=== PATIENT | female | born 1955 | race Caucasian/White ===

== ENCOUNTER → 2021-05-26 | Outpatient (CLI) | payer OTHER ==
--- NOTE | 2021-05-26 14:09 | RAD ---
EXAM: PET/CT SKULL BASE THROUGH MID THIGH. HISTORY: Neoplasm of inguinal lymph nodes. TECHNIQUE: CT of the skull base through the mid thighs was performed for the purposes of attenuation correction. 12.40 mCi F-18 fluorodeoxyglucose were administered intravenously. Blood glucose level at the time of administration was 131 mg/dL. After 60 minutes uptake, positron emission tomography of t he skull base through the mid thighs was performed. The PET and CT data were fused and interpreted in combination on a dedicated workstation. Reported standard uptake values (SUV) are the maximum SUV wi thin a lesional volumetric region of interest. SUV normalization is via body mass. COMPARISON: CT abdomen pelvis 05/17/2021. FINDINGS: Mediastinal blood pool SUV reference value: SUV max 2.5, SUV mean 2.17. Head and neck: No abnormal FDG uptake or lymphadenopathy. CHEST: There is a mass in the outer left breast measuring 2.2 x 1.0 cm with mild FDG uptake, SUV max 2.37. Mild FDG uptake in the AP window lymph node, SUV max 2.26 nonspecific but likely reactive. No l ymphadenopathy. There are calcified subcarinal and right hilar lymph nodes. Heart is normal in size. No pericardial effusion. Thoracic aorta is normal in caliber. The lungs are clear. No pleural effusio n. Abdomen and pelvis: No lymphadenopathy. Mild FDG uptake in the region of the distal rectum and anus, SUV max 3.7, nonspecific. No other areas of abnormal FDG uptake. No lymphadenopathy in the abdomen an d pelvis. Liver, gallbladder, pancreas, spleen, adrenal glands, kidneys and bladder, uterus are jaxson l. Stomach, small bowel, appendix and colon are normal. No free fluid or free air. Musculoskeletal: The small fluid collection in the right groin has resolved. There is residual soft t issue thickening measuring 1.6 x 1.0 cm, with low-level FDG uptake, SUV max 1.57. This is consistent with scarring/surgical changes. No abnormal FDG uptake. 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 IMPRESSION: 1. The small fluid collection in the right groin has resolved and there is residual soft tissue thick ening with low-level FDG uptake, consistent with scarring or surgical changes. No inguinal lymphadeno dann. 2. 2.2 cm left breast mass with mild FDG uptake, indeterminate. Malignancy is possible. Recommend cor relation with diagnostic mammogram and left breast ultrasound. 3. Mild FDG uptake in the region of the distal rectum and anus, nonspecific. Electronically signed by: Rosalee Reich MD (05/26/2021 2:07 PM) [id number]
== END ==
LOC: PETSC 08:58
PROVIDERS: ATTEND Radiology Radiation Oncology
DX: C77.4 Secondary and unspecified malignant neoplasm of inguinal and lower limb lymph nodes (principal); N63.20 Unspecified lump in the left breast, unspecified quadrant; M50.30 Other cervical disc degeneration, unspecified cervical region
CPT/HCPCS: 78815; A9552

== ENCOUNTER → 2021-06-28 | Outpatient (CLI) | payer OTHER ==
[~2021-06-28] MED LIST: IOHEXOL 240 MG/ML 100 ML VIAL. ONE
== END ==
LOC: CT 12:47
PROVIDERS: ATTEND Radiology Radiation Oncology
DX: C21.1 Malignant neoplasm of anal canal (principal)
CPT/HCPCS: 76380; Q9966

== ENCOUNTER → 2021-07-21 | Outpatient (CLI) | payer OTHER ==
[2021-07-21 11:33] LABS: BASO % 0 % (0-3); EOS % 7 % (0-3); HEMATOCRIT 24.9 % (36.0-47.0); HEMOGLOBIN 8.7 g/dL (12.0-15.5); LYMPH # 0.2 x10^3/uL (1.0-4.8); LYMPH % 62 % (24-48); MEAN CORPUSCULAR HEMOGLOBIN 32 pg (25-35); MEAN CORPUSCULAR HGB CONC 35 g/dL (31-37); MEAN CORPUSCULAR VOLUME 90 fL (79-100); MONO # 0.1 x10^3/uL (0.0-1.1); MONO % 16 % (0-9); NEUT # 0.1 x10^3/uL (1.8-7.7); NEUT % 15 % (31-73); RED BLOOD COUNT 2.75 x10^6/uL (3.50-5.40); RED CELL DISTRIBUTION WIDTH 12.6 % (11.5-14.5)
[2021-07-21 11:37] LABS: WHITE BLOOD COUNT 0.4 x10^3/uL (4.0-11.0)
[2021-07-21 11:38] LABS: PLATELET COUNT 18 x10^3/uL (140-400)
[2021-07-21 11:39] LABS: CREATININE 0.8 mg/dL (0.6-1.0); GFR 72.4; POTASSIUM 3.4 mmol/L (3.5-5.1)
== END ==
LOC: ONCLAB 11:06
PROVIDERS: ATTEND Physician Assistant
DX: C50.412 Malignant neoplasm of upper-outer quadrant of left female breast (principal)
CPT/HCPCS: 36415; 80048; 85025

== ENCOUNTER → 2021-07-27 | Outpatient (CLI) | payer OTHER ==
[2021-07-27 12:03] LABS: BASO % 0 % (0-3); EOS % 1 % (0-3); HEMATOCRIT 22.7 % (36.0-47.0); LYMPH # 0.3 x10^3/uL (1.0-4.8); LYMPH % 14 % (24-48); MEAN CORPUSCULAR HEMOGLOBIN 32 pg (25-35); MEAN CORPUSCULAR HGB CONC 35 g/dL (31-37); MEAN CORPUSCULAR VOLUME 91 fL (79-100); MONO # 0.2 x10^3/uL (0.0-1.1); MONO % 10 % (0-9); NEUT # 1.8 x10^3/uL (1.8-7.7); NEUT % 76 % (31-73); RED BLOOD COUNT 2.51 x10^6/uL (3.50-5.40); RED CELL DISTRIBUTION WIDTH 12.6 % (11.5-14.5); WHITE BLOOD COUNT 2.4 x10^3/uL (4.0-11.0)
[2021-07-27 12:10] LABS: CALCIUM 8.9 mg/dL (8.5-10.1); CREATININE 0.9 mg/dL (0.6-1.0); GFR 63.2; POTASSIUM 3.5 mmol/L (3.5-5.1)
[2021-07-27 12:14] LABS: PLATELET COUNT 35 x10^3/uL (140-400)
[2021-07-27 12:17] LABS: ALBUMIN 2.9 g/dL (3.4-5.0); ALBUMIN/GLOBULIN RATIO 0.8 (1.0-1.7); MAGNESIUM 1.9 mg/dL (1.8-2.4); PHOSPHORUS 3.6 mg/dL (2.6-4.7); TOTAL BILIRUBIN 0.3 mg/dL (0.2-1.0); TOTAL PROTEIN 6.7 g/dL (6.4-8.2)
[2021-07-27 19:11] LABS: % BANDS 8 % (0-9); % EOS 2 % (0-5); % LYMPHS 21 % (24-48); % MONOS 6 % (0-10); % MYELOS 1 % (0-0); % SEGS 62 % (35-66); NUCLEATED RBC 2; PLT ESTIMATE DECREASED (ADEQUATE)
== END ==
LOC: ONCLAB 11:13
PROVIDERS: ATTEND Internal Medicine Hematology & Oncology
DX: C50.412 Malignant neoplasm of upper-outer quadrant of left female breast (principal); C21.1 Malignant neoplasm of anal canal
CPT/HCPCS: 36415; 80053; 83735; 84100; 85007; 85025

== ENCOUNTER → 2021-07-31 | Outpatient (CLI) | payer OTHER ==
[2021-07-31 12:14] LABS: BASO % 0 % (0-3); EOS % 0 % (0-3); HEMATOCRIT 24.5 % (36.0-47.0); HEMOGLOBIN 8.5 g/dL (12.0-15.5); LYMPH # 0.4 x10^3/uL (1.0-4.8); LYMPH % 7 % (24-48); MEAN CORPUSCULAR HEMOGLOBIN 32 pg (25-35); MEAN CORPUSCULAR HGB CONC 35 g/dL (31-37); MEAN CORPUSCULAR VOLUME 92 fL (79-100); MONO # 0.3 x10^3/uL (0.0-1.1); MONO % 6 % (0-9); NEUT # 4.4 x10^3/uL (1.8-7.7); NEUT % 86 % (31-73); PLATELET COUNT 148 x10^3/uL (140-400); RED BLOOD COUNT 2.68 x10^6/uL (3.50-5.40); RED CELL DISTRIBUTION WIDTH 12.8 % (11.5-14.5); WHITE BLOOD COUNT 5.1 x10^3/uL (4.0-11.0)
[2021-07-31 12:23] LABS: CALCIUM 9.1 mg/dL (8.5-10.1); CREATININE 0.8 mg/dL (0.6-1.0); GFR 72.4; POTASSIUM 3.7 mmol/L (3.5-5.1)
[2021-07-31 12:30] LABS: ALBUMIN 3.1 g/dL (3.4-5.0); ALBUMIN/GLOBULIN RATIO 0.9 (1.0-1.7); MAGNESIUM 2.1 mg/dL (1.8-2.4); PHOSPHORUS 4.5 mg/dL (2.6-4.7); TOTAL BILIRUBIN 0.4 mg/dL (0.2-1.0); TOTAL PROTEIN 6.7 g/dL (6.4-8.2)
[2021-07-31 13:19] LABS: % BANDS 6 % (0-9); % LYMPHS 8 % (24-48); % MONOS 9 % (0-10); % SEGS 77 % (35-66); PLT ESTIMATE ADEQUATE (ADEQUATE)
== END ==
LOC: ONCLAB 11:11
PROVIDERS: ATTEND Internal Medicine
DX: C21.1 Malignant neoplasm of anal canal (principal); C50.412 Malignant neoplasm of upper-outer quadrant of left female breast
CPT/HCPCS: 36415; 80053; 83735; 84100; 85007; 85025

== ENCOUNTER → 2021-08-04 | Outpatient (CLI) | payer OTHER ==
[2021-08-04 11:57] LABS: BASO % 1 % (0-3); EOS % 1 % (0-3); HEMATOCRIT 27.3 % (36.0-47.0); HEMOGLOBIN 9.4 g/dL (12.0-15.5); LYMPH # 0.2 x10^3/uL (1.0-4.8); LYMPH % 11 % (24-48); MEAN CORPUSCULAR HEMOGLOBIN 32 pg (25-35); MEAN CORPUSCULAR HGB CONC 35 g/dL (31-37); MEAN CORPUSCULAR VOLUME 93 fL (79-100); MONO # 0.3 x10^3/uL (0.0-1.1); MONO % 16 % (0-9); NEUT # 1.6 x10^3/uL (1.8-7.7); NEUT % 72 % (31-73); PLATELET COUNT 250 x10^3/uL (140-400); RED BLOOD COUNT 2.94 x10^6/uL (3.50-5.40); RED CELL DISTRIBUTION WIDTH 13.3 % (11.5-14.5); WHITE BLOOD COUNT 2.2 x10^3/uL (4.0-11.0)
[2021-08-04 12:05] LABS: CALCIUM 9.1 mg/dL (8.5-10.1); CREATININE 0.9 mg/dL (0.6-1.0); GFR 63.2; POTASSIUM 4.3 mmol/L (3.5-5.1)
[2021-08-04 12:10] LABS: ALBUMIN 3.5 g/dL (3.4-5.0); ALBUMIN/GLOBULIN RATIO 1.1 (1.0-1.7); PHOSPHORUS 4.8 mg/dL (2.6-4.7); TOTAL BILIRUBIN 0.6 mg/dL (0.2-1.0); TOTAL PROTEIN 6.7 g/dL (6.4-8.2)
== END ==
LOC: ONCLAB 11:27
PROVIDERS: ATTEND Internal Medicine
DX: C21.1 Malignant neoplasm of anal canal (principal)
CPT/HCPCS: 36415; 80053; 83735; 84100; 85025

== ENCOUNTER → 2021-08-17 | Outpatient (CLI) | payer OTHER ==
[~2021-08-17] MED LIST changes: +HEPARIN PF 500 UNIT/5 ML DISP.SYRIN. IVP ONE; -IOHEXOL 240 MG/ML 100 ML VIAL. ONE
[2021-08-17 10:59] LABS: BASO % 1 % (0-3); EOS # 0.1 x10^3/uL (0.0-0.7); EOS % 35 % (0-3); LYMPH # 0.1 x10^3/uL (1.0-4.8); LYMPH % 16 % (24-48); MEAN CORPUSCULAR HEMOGLOBIN 33 pg (25-35); MEAN CORPUSCULAR HGB CONC 36 g/dL (31-37); MEAN CORPUSCULAR VOLUME 92 fL (79-100); MONO # 0.1 x10^3/uL (0.0-1.1); MONO % 20 % (0-9); NEUT # 0.1 x10^3/uL (1.8-7.7); NEUT % 29 % (31-73); RED BLOOD COUNT 1.84 x10^6/uL (3.50-5.40); RED CELL DISTRIBUTION WIDTH 14.6 % (11.5-14.5)
[2021-08-17 11:02] LABS: HEMOGLOBIN 6.1 g/dL (12.0-15.5); PLATELET COUNT 13 x10^3/uL (140-400); WHITE BLOOD COUNT 0.4 x10^3/uL (4.0-11.0)
[2021-08-17 11:17] LABS: CREATININE 0.8 mg/dL (0.6-1.0); GFR 72.4; POTASSIUM 3.7 mmol/L (3.5-5.1)
[2021-08-17 11:20] LABS: ALBUMIN 2.5 g/dL (3.4-5.0); ALBUMIN/GLOBULIN RATIO 0.9 (1.0-1.7); MAGNESIUM 1.8 mg/dL (1.8-2.4); TOTAL BILIRUBIN 2.6 mg/dL (0.2-1.0); TOTAL PROTEIN 5.4 g/dL (6.4-8.2)
== END ==
LOC: ONCLAB 10:06
PROVIDERS: ATTEND Internal Medicine Hematology & Oncology
DX: C21.1 Malignant neoplasm of anal canal (principal); E86.0 Dehydration
CPT/HCPCS: 36415; 80053; 83615; 83735; 84100; 85025; J1642